=== PATIENT | female | born 1970 | race Caucasian/White ===

== ENCOUNTER 2019-07-28 21:18 | Emergency (ER) | payer OTHER ==
[~2019-07-28] VITALS: Ht 157.5 cm; Wt 54.0 kg
[2019-07-28 21:22] VITALS: BP 134/86
--- NOTE | 2019-07-28 21:22 | NUR ---
BIB [facility], PT AMBULATED FROM [facility] TO BED 12.
[2019-07-28] MEDS ORDERED: ONDANSETRON 4 MG/2 ML VIAL IVP ONE (21:30)
[2019-07-28] MEDS ORDERED: KETOROLAC 30 MG/ML VIAL IVP ONE (21:30)
[2019-07-28] MEDS ORDERED: NACL 0.9% 1,000 ML IV ONE (21:30)
--- NOTE | 2019-07-28 21:42 | NUR ---
PT BIBA FOR ABDOMINAL PAIN. PT STATES "I HAD MINOR ABDOMINAL PAIN EARLIER TODAY, BUT AFTER EATING CEVICHE MY PAIN WAS UNBEARABLE." PT PAIN LEVEL 6/10, CONSTANT SHARP PAIN. IV ESTABLISHED BY COUNTER CASER, 20 GAUGE IN RIGHT AC AND WAS GIVEN FENTANYL 100MCG. PT DENIES FEVER AND CHILLS. DENIES N/V/D. ALLERGIES: MEPERIDINE. NO MED HX. SAFETY MEASURES IN PLACE. ERMD MADE AWARE OF STATUS.
--- NOTE | 2019-07-28 22:20 | NUR ---
PT C/O OF ABDOMINAL PAIN 09/10. ERMD MADE AWARE.
--- NOTE | 2019-07-28 22:20 | NUR ---
Rosalia serrano in ED - 07/28/19 at 2258 by [email or web address] PT C/O OF ABDOMINAL PAIN 09/10. KAREEM MADE AWARE.
--- NOTE | 2019-07-28 22:42 | NUR ---
Note undone in EDM - 07/28/19 at 2259 by [email or web address] PT BIBA FOR ABDOMINAL PAIN. PT STATES "I HAD MINOR ABDOMINAL PAIN EARLIER TODAY, BUT AFTER EATING CEVICHE MY PAIN WAS UNBEARABLE." PT PAIN LEVEL 6/10, CONSTANT SHARP PAIN. IV ESTABLISHED BY INSURANCE MANAGER, 20 GAUGE IN RIGHT AC AND WAS GIVEN FENTANYL 100MCG. PT DENIES FEVER AND CHILLS. DENIES N/V/D. ALLERGIES: MEPERIDINE. NO MED HX. SAFETY MEASURES IN PLACE. ERMD MADE AWARE OF STATUS.
[2019-07-28] MEDS ORDERED: MORPHINE SULFATE 2 MG/ML SYR IVP ONE (22:45)
--- NOTE | 2019-07-28 22:45 | NUR ---
PT C/O OF ABDOMINAL PAIN 09/10. ERMD MADE AWARE.
--- NOTE | 2019-07-28 23:22 | NUR ---
PT IS CRYING IN PAIN. PAIN LEVEL 10/10. ERMD MADE AWARE.
[2019-07-28] MEDS ORDERED: MAGNESIUM CITRATE 300 ML BTL PO ONE (23:45)
[2019-07-29 00:05] LABS: BASOPHILS % (AUTO) 0.1 % (0.0-2.0); EOSINOPHILS % (AUTO) 0.1 % (0.0-4.0); HEMATOCRIT 34.8 % (36-48); HEMOGLOBIN 11.5 g/dL (12.0-16.0); LYMPHOCYTES # (AUTO) 1.1 K/uL (2.5-16.5); LYMPHOCYTES % (AUTO) 11.3 % (20.5-51.1); MEAN CORPUSCULAR HEMOGLOBIN 29 pg (27-31); MEAN CORPUSCULAR HGB CONC 33 g/dL (33-37); MEAN CORPUSCULAR VOLUME 86.5 fL (80-94); MONOCYTES # (AUTO) 0.5 K/uL (0.8-1.0); MONOCYTES % (AUTO) 5.1 % (1.7-9.3); NEUTROPHILS % (AUTO) 83.4 % (42.2-75.2); PLATELET COUNT (AUTO) 326 K/uL (140-450); RED BLOOD CELL COUNT(AUTO) 4.03 MIL/uL (4.20-5.40); RED CELL DISTRIBUTION WIDTH 13.3 % (11.6-13.7); WHITE BLOOD COUNT (AUTO) 9.6 K/uL (4.8-10.8)
--- NOTE | 2019-07-29 00:08 | NUR ---
PT USING BEDSIDE COMMODE
--- NOTE | 2019-07-29 00:20 | NUR ---
PT VOMITED X1. DID NOT HAVE BM. PT STATES SHE FEELS BETTER AFTER VOMITING.
--- NOTE | 2019-07-29 00:25 | NUR ---
ERMD NOTIFIED PT TO COME BACK TO ER OR SEE PCP IF STILL NOT FEELING BETTER.
--- NOTE | 2019-07-29 00:33 | NUR ---
Patient discharged with v/s stable. Written and verbal after care instructions given and explained. Pt educated to eat a clear liquid diet until pain goes away. Pt also encouraged to drink plenty of fluids until urine is clear. Patient alert, oriented and verbalized understanding of instructions. Ambulatory with steady gait. All questions addressed prior to discharge. ID band removed. Patient advised to follow up with PMD. Rx of TRAMADOL, MINERAL OIL, AND LACTULOSE WAS given. Patient educated on indication of medication including possible reaction and side effects. Opportunity to ask questions provided and answered.
[2019-07-29 00:35] VITALS: BP 139/57
== END 2019-07-29 00:35 | disposition home or self-care (01) ==
LOC: MED 21:18
DX: K59.00 Constipation, unspecified (principal); Z88.8 Allergy status to other drugs, medicaments and biological substances
CPT/HCPCS: 36415; 74018; 76856; 81025; 85025; 96374; 96375; 99284; J1885; J2270; J2405; J7030; Q0092

== ENCOUNTER 2019-07-30 10:46 | Emergency (ER) | payer OTHER ==
[~2019-07-30] VITALS: Ht 157.5 cm; Wt 59.5 kg
[2019-07-30 10:50] VITALS: BP 155/78
--- NOTE | 2019-07-30 11:06 | NUR ---
BIB . AAO X4 C/O CONSTANT SHARP RIGHT LOWER BACK PAIN RADIATING TO RLQ PAIN X 3 DAYS. PT DENIES FEVER, N/V/D, SOB, DYSURIA. PT WAS SEEN HERE FOR THE SAME SYMPTOMS IN ER ON 07/28/2019 AND WAS PRESCRIBED WITH TRAMADOL AND LACTULOSE FOR CONSTIPATION. LAST BM YESTERDAY. PATIENT STATES PAIN OF 10/10 AT THIS TIME; VSS; PATIENT POSITIONED FOR COMFORT; HOB ELEVATED; BEDRAILS UP X1; BED DOWN. ER MD MADE AWARE OF PT STATUS.
[2019-07-30] MEDS ORDERED: KETOROLAC 30 MG/ML VIAL IVP ONE (11:20)
[2019-07-30] MEDS ORDERED: NACL 0.9% 1,000 ML IV ONE (11:20)
[2019-07-30 11:42] LABS: BASOPHILS % (AUTO) 0.3 % (0.0-2.0); HEMATOCRIT 36.6 % (36-48); HEMOGLOBIN 12.1 g/dL (12.0-16.0); LYMPHOCYTES # (AUTO) 0.9 K/uL (2.5-16.5); LYMPHOCYTES % (AUTO) 8.1 % (20.5-51.1); MEAN CORPUSCULAR HEMOGLOBIN 29 pg (27-31); MEAN CORPUSCULAR HGB CONC 33 g/dL (33-37); MEAN CORPUSCULAR VOLUME 86.1 fL (80-94); MONOCYTES # (AUTO) 0.7 K/uL (0.8-1.0); MONOCYTES % (AUTO) 6.9 % (1.7-9.3); NEUTROPHILS # (AUTO) 9.1 K/uL (1.8-7.7); NEUTROPHILS % (AUTO) 84.7 % (42.2-75.2); PLATELET COUNT (AUTO) 334 K/uL (140-450); RED BLOOD CELL COUNT(AUTO) 4.25 MIL/uL (4.20-5.40); RED CELL DISTRIBUTION WIDTH 13.4 % (11.6-13.7); WHITE BLOOD COUNT (AUTO) 10.7 K/uL (4.8-10.8)
[2019-07-30 11:42] LABS: APPEARANCE,URINE CLEAR (CLEAR); BILIRUBIN,URINE NEGATIVE (NEGATIVE); BLOOD, URINE 2+ (NEGATIVE); COLOR,URINE YELLOW (YELLOW); LEUKOCYTE ESTERASE ,URINE NEGATIVE (NEGATIVE); NITRITE, URINE NEGATIVE (NEGATIVE); UGLUCOSE NEGATIVE (NEGATIVE)
[2019-07-30 11:57] LABS: ALBUMIN 3.6 g/dL (3.4-5.0); ANION GAP 11.8 (8-16); CARBON DIOXIDE 26.7 mmol/L (21-32); CREATININE 1.1 mg/dL (0.6-1.3); POTASSIUM 3.5 mmol/L (3.5-5.1); TOTAL BILIRUBIN 0.6 mg/dL (0.0-1.0)
[2019-07-30 12:07] LABS: WBC,URINE 0-5 /HPF (0-5)
--- NOTE | 2019-07-30 13:05 | NUR ---
PT IS RESTING IN BED WITH EYES CLOSED.
--- NOTE | 2019-07-30 14:55 | NUR ---
PT IS RESTING IN BED WITH EYES OPENED.
[2019-07-30 15:35] LABS: APPEARANCE,URINE CLEAR (CLEAR); BILIRUBIN,URINE NEGATIVE (NEGATIVE); BLOOD, URINE 3+ (NEGATIVE); COLOR,URINE YELLOW (YELLOW); LEUKOCYTE ESTERASE ,URINE NEGATIVE (NEGATIVE); NITRITE, URINE NEGATIVE (NEGATIVE); UGLUCOSE NEGATIVE (NEGATIVE)
[2019-07-30 15:53] LABS: RBC,URINE 11-20 (MOD) /HPF (0-5); WBC,URINE 0-5 /HPF (0-5)
[2019-07-30 16:35] VITALS: BP 138/51
--- NOTE | 2019-07-30 16:35 | NUR ---
Patient discharged with v/s stable. Written and verbal after care instructions given and explained. Patient alert, oriented and verbalized understanding of instructions. Ambulatory with steady gait. All questions addressed prior to discharge. ID band removed. Patient advised to follow up with PMD. Rx of Ibuprofen, MiraLax, and Flomax given. Patient educated on indication of medication including possible reaction and side effects. Opportunity to ask questions provided and answered.
== END 2019-07-30 16:35 | disposition home or self-care (01) ==
LOC: MED 10:46
DX: N20.0 Calculus of kidney (principal); Z88.8 Allergy status to other drugs, medicaments and biological substances
CPT/HCPCS: 36415; 74176; 80053; 81001; 81025; 83690; 85025; 87086; 99284; J1885; J7030

== ENCOUNTER 2020-12-08 15:30 | Emergency (ER) | payer OTHER ==
[~2020-12-08] VITALS: Ht 162.6 cm; Wt 61.2 kg
[2020-12-08 15:48] VITALS: BP 159/77
[2020-12-08] MEDS ORDERED: ONDANSETRON 4 MG ODT PO ONE (16:15)
--- NOTE | 2020-12-08 16:45 | NUR ---
C/O GEN WEAKNESS/ DIZZINESS/ VOMITING X1 DAY. PATIENT STATES SHE FEELS LIKE HER HEART IS RACING. STATES SHE FEELS LIGHTHEADEDAND ANXIOUS. DENIES SOB/COUGH/FEVER NO PMH NKDA
--- NOTE | 2020-12-08 16:53 | NUR ---
BLOOD DRAWN AND URINE COLLECTED AT THIS TIME
[2020-12-08 17:09] LABS: EOSINOPHILS % (AUTO) 0.7 % (0.0-4.0); HEMATOCRIT 36.8 % (36-48); HEMOGLOBIN 12.2 g/dL (12.0-16.0); LYMPHOCYTES # (AUTO) 0.6 K/uL (2.5-16.5); LYMPHOCYTES % (AUTO) 8.8 % (20.5-51.1); MEAN CORPUSCULAR HEMOGLOBIN 29 pg (27-31); MEAN CORPUSCULAR HGB CONC 33 g/dL (33-37); MEAN CORPUSCULAR VOLUME 86.4 fL (80-94); MONOCYTES # (AUTO) 0.4 K/uL (0.8-1.0); MONOCYTES % (AUTO) 5.4 % (1.7-9.3); NEUTROPHILS # (AUTO) 6.1 K/uL (1.8-7.7); NEUTROPHILS % (AUTO) 85.1 % (42.2-75.2); PLATELET COUNT (AUTO) 336 K/uL (140-450); RED BLOOD CELL COUNT(AUTO) 4.25 MIL/uL (4.20-5.40); RED CELL DISTRIBUTION WIDTH 13.6 % (11.6-13.7); WHITE BLOOD COUNT (AUTO) 7.2 K/uL (4.8-10.8)
[2020-12-08 17:12] LABS: APPEARANCE,URINE CLEAR (CLEAR); BILIRUBIN,URINE NEGATIVE (NEGATIVE); BLOOD, URINE NEGATIVE (NEGATIVE); COLOR,URINE YELLOW (YELLOW); LEUKOCYTE ESTERASE ,URINE NEGATIVE (NEGATIVE); NITRITE, URINE NEGATIVE (NEGATIVE); PH,URINE 5.5 (5.0-9.0); UGLUCOSE TRACE (NEGATIVE)
[2020-12-08 17:19] LABS: ALBUMIN 3.5 g/dL (3.4-5.0); ANION GAP 10.7 (8-16); CARBON DIOXIDE 25.7 mmol/L (21-32); CREATININE 0.9 mg/dL (0.6-1.3); POTASSIUM 3.4 mmol/L (3.5-5.1); TOTAL BILIRUBIN 0.2 mg/dL (0.0-1.0)
[2020-12-08 17:57] VITALS: BP 159/77
== END 2020-12-08 17:37 | disposition home or self-care (01) ==
LOC: MED 15:30
DX: R73.9 Hyperglycemia, unspecified (principal); R35.0 Frequency of micturition; I10 Essential (primary) hypertension; R53.1 Weakness; Z88.5 Allergy status to narcotic agent
CPT/HCPCS: 36415; 80053; 81003; 83690; 85025; 87086; 99283; Q0162

== ENCOUNTER 2021-07-17 02:25 | Emergency (ER) | payer OTHER ==
[~2021-07-17] VITALS: Ht 167.6 cm; Wt 65.8 kg
[2021-07-17 02:25] VITALS: BP 110/63
--- NOTE | 2021-07-17 02:33 | NUR ---
PT TRANSFERRED FROM EMS [facility] TO ER BED 9
--- NOTE | 2021-07-17 02:37 | NUR ---
PATIENT BIBA FROM HOME FOR C/O DIZZYNESS X 1 HOUR. PER PATIENT HAD X 1 EPISODE OF N/V. PATIENT STATES HAS HAD THIS TYPE OF EPISODE BEFORE. PATIENT DENIES PAIN AT THIS TIME. PATIENT STATES, "I JUST FEEL WEAK." MEDHX: PATIENT DENIES ALLERGIES: DEMEROL.
[2021-07-17] MEDS ORDERED: diphenhydrAMINE 50 MG/ML VIAL IVP ONE (03:00)
[2021-07-17] MEDS ORDERED: METOCLOPRAMIDE 10 MG/2 ML INJ VIAL IVP ONE (03:00)
--- NOTE | 2021-07-17 03:10 | NUR ---
BLOOD DRAWN VIA IV START AND GIVEN TO KERVIN LANTIGUA TECH
[2021-07-17 03:16] LABS: BASOPHILS # (AUTO) 0.1 K/uL (0.00-0.22); BASOPHILS % (AUTO) 0.9 % (0.0-2.0); EOSINOPHILS % (AUTO) 0.2 % (0.0-4.0); HEMATOCRIT 38.2 % (36-48); HEMOGLOBIN 12.5 g/dL (12.0-16.0); LYMPHOCYTES # (AUTO) 1.6 K/uL (2.5-16.5); LYMPHOCYTES % (AUTO) 26.1 % (20.5-51.1); MEAN CORPUSCULAR HEMOGLOBIN 29 pg (27-31); MEAN CORPUSCULAR HGB CONC 33 g/dL (33-37); MEAN CORPUSCULAR VOLUME 86.9 fL (80-94); MONOCYTES # (AUTO) 0.5 K/uL (0.8-1.0); MONOCYTES % (AUTO) 7.9 % (1.7-9.3); NEUTROPHILS % (AUTO) 64.9 % (42.2-75.2); PLATELET COUNT (AUTO) 370 K/uL (140-450); RED CELL DISTRIBUTION WIDTH 13.9 % (11.6-13.7); WHITE BLOOD COUNT (AUTO) 6.1 K/uL (4.8-10.8)
--- NOTE | 2021-07-17 03:26 | NUR ---
PATIENT REMAINS ON SAFETY ADVISOR. VSS. PATIENT STATES UNABLE TO PROVIDE URINE SAMPLE AT THIS TIME. KAREEM MADE AWARE.
[2021-07-17 03:46] LABS: ALBUMIN 3.5 g/dL (3.4-5.0); ANION GAP 12.4 (8-16); CARBON DIOXIDE 26.2 mmol/L (21-32); CREATININE 0.8 mg/dL (0.6-1.3); POTASSIUM 3.6 mmol/L (3.5-5.1); TOTAL BILIRUBIN 0.1 mg/dL (0.0-1.0)
--- NOTE | 2021-07-17 04:20 | NUR ---
PATIENT AMBUALTED TO RESTROOM WIUTH STEADY GAIT. PATIENT STATES," I FEEL SO MUCH BETTER AFTER THE MEDICATION." PATIENT STATES NO LONGER FEELING NAUSEOUS. PATIENT HAD NO EPISODES OF VOMMITING SINCE ARRIVING. PATIENT ALSO DENIES FEELING DIZZY.
--- NOTE | 2021-07-17 05:18 | NUR ---
IV removed, catheter intact and site benign. Applied folded 4x4 gauze and tape to stop bleeding.
[2021-07-17 05:20] VITALS: BP 110/60
--- NOTE | 2021-07-17 05:20 | NUR ---
Patient discharged with v/s stable. Written and verbal after care instructions given and explained. Patient verbalized understanding. Ambulatory with steady gait. All questions addressed prior to discharge. Advised to follow up with PMD.
[2021-07-17] MEDS ORDERED: LORazepam 2 MG/ML VIAL ONE (06:55)
[2021-07-17] MEDS ORDERED: HALOPERIDOL IM 5 MG/ML VIAL ONE (06:55)
[2021-07-17] MEDS ORDERED: diphenhydrAMINE 50 MG CAP PO ONE (06:55)
[2021-07-17] MEDS ORDERED: diphenhydrAMINE 50 MG/ML VIAL ONE (06:56)
== END 2021-07-17 05:20 | disposition home or self-care (01) ==
LOC: MED 02:25
DX: R42 Dizziness and giddiness (principal); Z88.8 Allergy status to other drugs, medicaments and biological substances
CPT/HCPCS: 36415; 71045; 80053; 81002; 81025; 84484; 85025; 93005; 96374; 96375; 99285; J1200; J2765; J1630; J2060; Q0163

== ENCOUNTER 2024-09-29 23:45 | Emergency (ER) | payer OTHER ==
[~2024-09-29] VITALS: Ht 157.5 cm; Wt 63.5 kg
[2024-09-29 23:53] VITALS: BP 140/66; PULSE 63; RESP 22; TEMP 98.3; O2SAT 98
[2024-09-30 00:34] LABS: APPEARANCE,URINE CLEAR (CLEAR); BILIRUBIN,URINE NEGATIVE (NEGATIVE); BLOOD, URINE NEGATIVE (NEGATIVE); COLOR,URINE YELLOW (YELLOW); LEUKOCYTE ESTERASE ,URINE NEGATIVE (NEGATIVE); NITRITE, URINE NEGATIVE (NEGATIVE); PH,URINE 7.5 (5.0-9.0); PROTEIN,URINE NEGATIVE (NEGATIVE); UGLUCOSE NEGATIVE (NEGATIVE); UROBILINOGEN,URINE 0.2 EU/dL (0.2 - 1)
[2024-09-30 00:47] LABS: BASOPHILS # (AUTO) 0.1 K/uL (0.00-0.22); BASOPHILS % (AUTO) 1.6 % (0.0-2.0); EOSINOPHILS # (AUTO) 0.1 K/uL (0-0.4); EOSINOPHILS % (AUTO) 1.1 % (0.0-4.0); HEMATOCRIT 33.8 % (36-48); HEMOGLOBIN 11.4 g/dL (12.0-16.0); LYMPHOCYTES # (AUTO) 1.2 K/uL (2.5-16.5); LYMPHOCYTES % (AUTO) 22.7 % (20.5-51.1); MEAN CORPUSCULAR HEMOGLOBIN 29 pg (27-31); MEAN CORPUSCULAR HGB CONC 34 g/dL (33-37); MEAN CORPUSCULAR VOLUME 85.4 fL (80-94); MONOCYTES # (AUTO) 0.5 K/uL (0.8-1.0); MONOCYTES % (AUTO) 9.9 % (1.7-9.3); NEUTROPHILS # (AUTO) 3.5 K/uL (1.8-7.7); NEUTROPHILS % (AUTO) 64.7 % (42.2-75.2); PLATELET COUNT (AUTO) 318 K/uL (140-450); RED BLOOD CELL COUNT(AUTO) 3.95 MIL/uL (4.20-5.40); RED CELL DISTRIBUTION WIDTH 14.5 % (11.6-13.7); WHITE BLOOD COUNT (AUTO) 5.4 K/uL (4.8-10.8)
[2024-09-30] MEDS: NACL 0.9% 1,000 ML IV ONE (00:47)
[2024-09-30 00:53] LABS: ANION GAP 10.8 (8-16); CALCIUM 8.8 mg/dL (8.5-10.1); CARBON DIOXIDE 28.8 mmol/L (21-32); CREATININE 0.8 mg/dL (0.6-1.3); POTASSIUM 3.6 mmol/L (3.5-5.1)
[2024-09-30 00:57] LABS: ALBUMIN 3.1 g/dL (3.4-5.0); BILIRUBIN,DIRECT 0.1 mg/dL (0.0-0.3); TOTAL BILIRUBIN 0.2 mg/dL (0.0-1.0); TOTAL PROTEIN, SERUM 8.1 g/dL (6.4-8.2)
[2024-09-30] MEDS: ONDANSETRON 4 MG/2 ML VIAL IVP ONE (00:59)
[2024-09-30] MEDS: KETOROLAC 30 MG/ML VIAL IVP ONE (01:04)
[2024-09-30] MEDS ORDERED: ONDA-188 SL (01:38)
[2024-09-30] MEDS ORDERED: BEN10 PO (01:38)
[2024-09-30] MEDS ORDERED: MECL-303 PO (01:57)
[2024-09-30] MEDS: MECLIZINE 25 MG TAB PO ONE (02:02)
[2024-09-30 02:50] VITALS: BP 134/59; PULSE 64; RESP 14; TEMP 97.8; O2SAT 100
== END 2024-09-30 02:50 | disposition home or self-care (01) ==
LOC: MED 23:45
DX: R19.7 Diarrhea, unspecified (principal); R11.0 Nausea; K76.9 Liver disease, unspecified; Z79.899 Other long term (current) drug therapy; Z88.5 Allergy status to narcotic agent
CPT/HCPCS: 36415; 74176; 80048; 80076; 81003; 81025; 83690; 85025; 96361; 96374; 96375; 99285; J1885; J2405; J7030; J8597